=== PATIENT | male | born 1950 | race Caucasian/White ===

== ENCOUNTER → 2016-03-13 | Outpatient (CLI) | payer MEDICARE ==
[~2016-03-13] MED LIST: ASPIR 8181 M1 PO; ASPIR-LOW81 MG PO; ATIVAN0.5 MG PO; ATORVASTATIN CA20 MG PO; BRINTELLIX5 MG PO; FLEXERIL10 MG PO; GABAPENTIN600 MG PO; HYZAAR 100-21 TABLET PO; IMODIUM2 MG PO; LIPITOR20 MG PO; LISINOPRIL-HCT1 EAC3 PO; LISINOPRIL20 MG PO; LORAZEPAM0.5 MG PO; LYRICA75 MG PO; Lipitor PO; MECLIZINE HCL25 MG PO; MICROZIDE12.5 M1 NG; MIRALAX17 GM PO; MULTICHEW CHEW1 EACH PO; MULTIVITAMIN1 EAC1 PO; NAPROSYN500 MG PO; NEURONTIN600 MG PO; PERCOCET 5/31 TABLET PO; PLAVIX75 MG PO; PRILOSEC OTC20 MG PO; PRINZIDE 20-121 EACH PO; Tylenol Regular Stre PO; ULTRAM50 MG PO; VYTORIN 10-201 EACH PO; ZANAFLEX4 M1 PO; ZESTRIL,PRINIVI20 MG PO
== END | disposition home or self-care (01) ==
LOC: CDC 10:36
DX: Z01.810 Encounter for preprocedural cardiovascular examination (principal); S82.13 Fracture of medial condyle of tibia; Z88.6 Allergy status to analgesic agent
CPT/HCPCS: 93000

== ENCOUNTER 2016-04-01 09:29 | Emergency (ER) | payer OTHER ==
[~2016-04-01] VITALS: Ht 185.4 cm; Wt 117.5 kg
[2016-04-01 10:25] LABS: HEMATOCRIT 42.6 % (38.0-50.0); MCH 27.7 PG (29.0-34.0); MCHC 32.9 G/DL (30.0-36.0); MCV 84.4 FL (86-99); PLATELET COUNT 321 K/uL (156-360); RED BLOOD COUNT 5.05 M/uL (4.00-5.50); WHITE BLOOD COUNT 10.5 K/uL (4.1-10.2)
[2016-04-01 10:35] LABS: CHLORIDE 108 mEq/L (99-109); POTASSIUM 3.7 mEq/L (3.7-5.4); SODIUM 142 mEq/L (136-147)
[2016-04-01 10:37] LABS: GLUCOSE 115 mg/dL (70-99)
[2016-04-01 10:39] LABS: ANION GAP 10 MEQ/L (2-14); TOTAL BILIRUBIN 0.5 mg/dL (0.0-1.0)
[2016-04-01 10:41] LABS: ALKALINE PHOSPHATASE 121 IU/L (3-129); GFR ESTIMATE (CALCULATED) > 59 mL/min/
[2016-04-01 10:42] LABS: UREA NITROGEN (BUN) 10 mg/dL (9-23)
[2016-04-01 10:44] LABS: LIPASE 18 U/L (1.0-51.0)
[2016-04-01] MEDS ORDERED: MIRALAX17 GM PO (14:06)
[2016-04-01 14:20] VITALS: BP 152/92
== END 2016-04-01 14:22 | disposition home or self-care (01) ==
LOC: EME 09:29 → EXP 09:29
DX: K59.00 Constipation, unspecified (principal); R10.9 Unspecified abdominal pain; E78.5 Hyperlipidemia, unspecified; Z98.890 Other specified postprocedural states; Z88.6 Allergy status to analgesic agent; Z91.013 Allergy to seafood
CPT/HCPCS: 74020; 80053; 81003; 83690; 85027; 99281; 99284

== ENCOUNTER 2016-07-01 15:39 | Observation (INO) | payer OTHER ==
[~2016-07-01] VITALS: Ht 182.9 cm; Wt 120.0 kg
[2016-07-01 16:37] LABS: BASOPHIL COUNT 0.1 K/uL (0-0.1); EOSINOPHIL (%) 0.7 % (0-5); EOSINOPHIL COUNT 0.1 K/uL (0-0.3); HEMATOCRIT 46.9 % (38.0-50.0); IMMATURE GRANULOCYTE (%) 0.4 % (0.0-0.7); IMMATURE GRANULOCYTE COUNT 0.1 K/uL; INSTRUMENT ABS NEUTROPHIL CT 11.8 K/uL; MCHC 31.6 G/DL (30.0-36.0); MCV 85.4 FL (86-99); MEAN PLAT.VOLUME 11.1 uM^3 (9.0-12.4); MONOCYTE (%) 7.4 % (3-12); MONOCYTE COUNT 1.1 K/uL (0-0.8); NEUTROPHIL (%) 77.9 % (45-76); NEUTROPHIL COUNT 11.8 K/uL (1.8-6.4); PLATELET COUNT 285 K/uL (156-360); RBC DIS.WIDTH-CV 14.4 % (11.8-14.6); RBC DIS.WIDTH-SD 44.9 % (39-53); RED BLOOD COUNT 5.49 M/uL (4.00-5.50); WHITE BLOOD COUNT 15.1 K/uL (4.1-10.2)
[2016-07-01 16:47] LABS: CHLORIDE 102 mEq/L (99-109); POTASSIUM 4.4 mEq/L (3.7-5.4); SODIUM 140 mEq/L (136-147)
[2016-07-01 16:48] LABS: GLUCOSE 100 mg/dL (70-99)
[2016-07-01 16:50] LABS: ANION GAP 10 MEQ/L (2-14); INTER. NORMALIZED RATIO 1.1; PROTHROMBIN TIME 10.7 (9.2-11.2); PTT 28.2 (25-32)
[2016-07-01 16:52] LABS: GFR ESTIMATE (CALCULATED) > 59 mL/min/
[2016-07-01 16:53] LABS: UREA NITROGEN (BUN) 14 mg/dL (9-23)
[2016-07-01 17:00] LABS: TROP-I INTERPRETATION NEGATIVE; TROPONIN-I < 0.01 ng/mL (0.0-0.30)
[2016-07-01] MEDS ORDERED: ATIVAN1 MG PO (19:10)
[2016-07-01] MEDS ORDERED: LIPITOR40 MG PO (19:10)
[2016-07-01] MEDS ORDERED: LYRICA50 MG PO (19:11)
[2016-07-01] MEDS ORDERED: FLINTSTONES M100 MCG PO (19:11)
[2016-07-01] MEDS ORDERED: NAMZARIC 28 MG1 EACH PO (19:12)
[2016-07-01] MEDS ORDERED: BRINTELLIX10 MG PO (19:12)
[2016-07-01] MEDS ORDERED: TYLENOL ARTHRI650 MG PO (19:13)
[2016-07-01 21:09] VITALS: BP 147/75
[2016-07-02 01:20] LABS: CREATINE KINASE 103 IU/L (1-294); TOTAL CK 103 IU/L (1-294)
[2016-07-02 01:24] LABS: TROP-I INTERPRETATION NEGATIVE; TROPONIN-I < 0.01 ng/mL (0.0-0.30)
[2016-07-02 01:27] LABS: CK-MB 1.6 ng/mL (0.0-4.9)
[2016-07-02 08:20] VITALS: BP 133/79
[2016-07-02 09:10] LABS: ALKALINE PHOSPHATASE 86 IU/L (3-129); ANION GAP 7 MEQ/L (2-14); CHLORIDE 104 MEQ/L (99-109); CREATINE KINASE 72 IU/L (1-294); GFR ESTIMATE (CALCULATED) > 59 mL/min/; GLUCOSE 86 mg/dL (70-99); POTASSIUM 4.6 MEQ/L (3.7-5.4); SAMPLE HEMOLYSIS CHECK 0; SAMPLE ICTERIC CHECK 0; SAMPLE LIPEMIA CHECK 0; SODIUM 140 MEQ/L (136-147); TOTAL BILIRUBIN 0.5 MG/DL (0.0-1.0); TOTAL CK 72 IU/L (1-294); UREA NITROGEN (BUN) 16 mg/dL (9-23)
[2016-07-02 09:15] LABS: TROP-I INTERPRETATION NEGATIVE; TROPONIN-I < 0.01 ng/mL (0.0-0.30)
[2016-07-02 09:29] LABS: BASOPHIL COUNT 0.1 K/uL (0-0.1); EOSINOPHIL (%) 1.5 % (0-5); EOSINOPHIL COUNT 0.2 K/uL (0-0.3); HEMATOCRIT 44.4 % (38.0-50.0); IMMATURE GRANULOCYTE (%) 0.4 % (0.0-0.7); INSTRUMENT ABS NEUTROPHIL CT 6.7 K/uL; LYMPHOCYTE COUNT 2.4 K/uL (1.0-2.8); MCH 26.6 PG (29.0-34.0); MCHC 30.6 G/DL (30.0-36.0); MCV 86.9 FL (86-99); MEAN PLAT.VOLUME 11.9 uM^3 (9.0-12.4); MONOCYTE COUNT 0.7 K/uL (0-0.8); NEUTROPHIL (%) 66.8 % (45-76); NEUTROPHIL COUNT 6.7 K/uL (1.8-6.4); PLATELET COUNT 239 K/uL (156-360); RBC DIS.WIDTH-CV 14.6 % (11.8-14.6); RBC DIS.WIDTH-SD 46.3 % (39-53); RED BLOOD COUNT 5.11 M/uL (4.00-5.50)
[2016-07-02 09:32] LABS: CK-MB 1.3 ng/mL (0.0-4.9)
[2016-07-02 09:49] LABS: ERTH.SED.RATE 12 MM/HR (0-20)
[2016-07-02 11:29] VITALS: BP 125/67
[2016-07-02 15:42] VITALS: BP 114/58
[2016-07-02] MEDS ORDERED: ASPIR-LOW81 MG PO (20:04)
[2016-07-02] MEDS ORDERED: OMEPRAZOLE20 MG PO (20:04)
== END 2016-07-02 20:57 | disposition home or self-care (01) ==
LOC: EME → EDBD 15:39 → EME 15:39 → 5WEST 19:59 → EDOF 19:59 → 5WEST 20:59
PROVIDERS: Emergency Medicine; Internal Medicine
DX: R07.9 Chest pain, unspecified (principal); R55 Syncope and collapse; R42 Dizziness and giddiness; R11.2 Nausea with vomiting, unspecified; R51 Headache; Z87.891 Personal history of nicotine dependence; E66.9 Obesity, unspecified; Z68.35 Body mass index [BMI] 35.0-35.9, adult; G30.9 Alzheimer's disease, unspecified; F02.80 Dementia in other diseases classified elsewhere, unspecified severity, without behavioral disturbance, psychotic disturbance, mood disturbance, and anxiety; G62.9 Polyneuropathy, unspecified; M19.90 Unspecified osteoarthritis, unspecified site; D72.829 Elevated white blood cell count, unspecified
CPT/HCPCS: 70450; 71020; 80048; 80053; 82550 91; 82553; 84484; 85025; 85610; 85651; 85730; 93005; 99281; 99285; G0378; J2270; J2405

== ENCOUNTER 2016-11-04 22:03 | Inpatient (IN) | payer OTHER ==
[~2016-11-04] VITALS: Ht 185.4 cm; Wt 119.0 kg
[~2016-11-04 22:03] MED LIST changes: +ATIVAN1 MG PO; +BRINTELLIX10 MG PO; +FLINTSTONES M100 MCG PO; +IRON325 M1 PO; +LIPITOR40 MG PO; +NAMZARIC 28 MG1 EACH PO; +OMEPRAZOLE20 MG PO; +TYLENOL ARTHRI650 MG PO
[2016-11-05] VITALS (7 sets, daily range): BP systolic 107–151; BP diastolic 57–83
[2016-11-06 04:15] VITALS: BP 132/85
[2016-11-06 06:34] LABS: ANION GAP 9 MEQ/L (2-14); CHLORIDE 105 MEQ/L (99-109); GFR ESTIMATE (CALCULATED) > 59 mL/min/; GLUCOSE 150 mg/dL (70-99); POTASSIUM 3.9 MEQ/L (3.7-5.4); SAMPLE HEMOLYSIS CHECK 0; SAMPLE ICTERIC CHECK 0; SAMPLE LIPEMIA CHECK 0; SODIUM 140 MEQ/L (136-147); UREA NITROGEN (BUN) 17 mg/dL (9-23)
[2016-11-06 12:11] VITALS: BP 135/67
[2016-11-06 15:50] VITALS: BP 131/75
[2016-11-06 19:24] VITALS: BP 150/83
[2016-11-06 23:39] VITALS: BP 159/80
[2016-11-07 04:17] VITALS: BP 129/60
[2016-11-07 07:59] VITALS: BP 123/61
[2016-11-07] MEDS ORDERED: HYDROMORPHONE HC2 MG PO (10:39)
[2016-11-07] MEDS ORDERED: Lidoderm 5% Patch TD (10:39)
[2016-11-07] MEDS ORDERED: ELIQUIS2.5 MG PO (10:39)
[2016-11-07] MEDS ORDERED: SENNA PLUS TAB1 EACH PO (10:39)
[2016-11-07 11:55] VITALS: BP 126/72
== END 2016-11-07 14:43 | DRG 470 ==
LOC: ENRESERV 22:03 → 2SOUTH 11-05 05:41 → 3WEST 11-05 05:41 → 2SOUTH 11-05 09:00 → 3WEST 11-05 11:02 → 2SOUTH 11-05 11:27 → 3WEST 11-07 14:43
PROVIDERS: Orthopaedic Surgery
PROC: 0SRD0J9 Replacement of Left Knee Joint with Synthetic Substitute, Cemented, Open Approach (ICD-10-PCS; principal; 2016-11-05)
DX: M17.12 Unilateral primary osteoarthritis, left knee (principal); F32.1 Major depressive disorder, single episode, moderate; G89.29 Other chronic pain; M25.562 Pain in left knee; M22.40 Chondromalacia patellae, unspecified knee; R26.2 Difficulty in walking, not elsewhere classified; I10 Essential (primary) hypertension; E66.9 Obesity, unspecified; Z68.34 Body mass index [BMI] 34.0-34.9, adult
CPT/HCPCS: 80048; C1713; J0131; J0690; J1100; J1885; J2250; J2405; J3010; J7050; J7120; L1820; Q0175; S0020

== ENCOUNTER 2017-04-17 20:52 | Observation (INO) | payer OTHER ==
[~2017-04-17] VITALS: Ht 185.4 cm; Wt 114.6 kg
[~2017-04-17 20:52] MED LIST changes: +ELIQUIS2.5 MG PO; +HYDROMORPHONE HC2 MG PO; +Lidoderm 5% Patch TD; +SENNA PLUS TAB1 EACH PO
[2017-04-17 21:43] LABS: HEMATOCRIT 46.4 % (38.0-50.0); MCH 26.7 PG (29.0-34.0); MCHC 32.3 G/DL (30.0-36.0); MCV 82.7 FL (86-99); PLATELET COUNT 285 K/uL (156-360); RBC DIS.WIDTH-CV 14.9 % (11.8-14.6); RBC DIS.WIDTH-SD 45.1 % (39-53); RED BLOOD COUNT 5.61 M/uL (4.00-5.50); WHITE BLOOD COUNT 12.5 K/uL (4.1-10.2)
[2017-04-17 21:54] LABS: CHLORIDE 110 mEq/L (99-109); SODIUM 142 mEq/L (136-147)
[2017-04-17 21:55] LABS: GLUCOSE 152 mg/dL (70-99)
[2017-04-17 21:59] LABS: CREATININE 0.9 mg/dL (0.6-1.3); GFR ESTIMATE (CALCULATED) > 59 mL/min/ (58.99-99999)
[2017-04-17 22:00] LABS: UREA NITROGEN (BUN) 17 mg/dL (9-23)
[2017-04-17 22:04] LABS: TROP-I INTERPRETATION NEGATIVE; TROPONIN-I < 0.01 ng/mL (0.0-0.30)
[2017-04-18 00:33] LABS: TROP-I INTERPRETATION NEGATIVE; TROPONIN-I < 0.01 ng/mL (0.0-0.30)
[2017-04-18] MEDS ORDERED: LIDODERM 5% P1 PATCH TD (01:30)
[2017-04-18] MEDS ORDERED: SENNA PLUS TAB1 EACH PO (01:30)
[2017-04-18] MEDS ORDERED: PEPTO BISMOL240 ML PO (01:31)
[2017-04-18 02:18] VITALS: BP 161/87
[2017-04-18 07:29] VITALS: BP 117/71
[2017-04-18 08:21] LABS: TROP-I INTERPRETATION NEGATIVE; TROPONIN-I < 0.01 ng/mL (0.0-0.30)
[2017-04-18 12:00] VITALS: BP 147/67
[2017-04-18 15:55] VITALS: BP 139/78
[2017-04-18 19:00] VITALS: BP 132/66
[2017-04-18 23:41] VITALS: BP 130/63
[2017-04-19 08:50] VITALS: BP 149/83
[2017-04-19 11:57] VITALS: BP 130/65
== END 2017-04-19 15:06 | disposition home or self-care (01) ==
LOC: EME 20:52 → EDOF 04-18 01:19 → ENRESERV 04-18 01:19 → 5WEST 04-18 02:09
PROVIDERS: Internal Medicine; Physician Assistant
DX: R51 Headache (principal); R42 Dizziness and giddiness; G93.89 Other specified disorders of brain; Z98.890 Other specified postprocedural states; I10 Essential (primary) hypertension; R00.2 Palpitations; R61 Generalized hyperhidrosis; M54.5 Low back pain; E78.5 Hyperlipidemia, unspecified; M19.90 Unspecified osteoarthritis, unspecified site; K21.9 Gastro-esophageal reflux disease without esophagitis; F03.90 Unspecified dementia, unspecified severity, without behavioral disturbance, psychotic disturbance, mood disturbance, and anxiety; Z88.5 Allergy status to narcotic agent; Z88.6 Allergy status to analgesic agent; Z87.891 Personal history of nicotine dependence
CPT/HCPCS: 70450; 71046; 80048; 84484; 85027; 93005; 99281; 99285; G0378; J1650